=== PATIENT | female | born 1995 | race Caucasian/White ===

== ENCOUNTER 2020-03-03 18:06 | Outpatient (CLI) | payer BC, OTHER ==
[~2020-03-03 18:06] MED LIST: AMOXICILLIN500 MG PO; BENTYL 20MG TAB20 MG PO; COLACE 100MG C100 MG PO; IBUPROFEN600 MG PO; KEFLEX500 MG PO; MACROBID 100 M100 MG PO; NORCO 5-325 TA1 EACH PO; REGLAN10 MG PO; ZOFRAN ODT 4 MG4 MG SL
== END 2020-03-03 21:19 | disposition home or self-care (01) ==
LOC: GENOP 18:06
DX: O99.891 Other specified diseases and conditions complicating pregnancy (principal); R10.9 Unspecified abdominal pain; R25.2 Cramp and spasm; Z3A.37 37 weeks gestation of pregnancy
CPT/HCPCS: 59025; 81001; 96360

== ENCOUNTER 2020-03-08 14:27 | Inpatient (IN) | payer BC, OTHER ==
[~2020-03-08] VITALS: Ht 167.6 cm; Wt 101.2 kg
[2020-03-08 17:34] LABS: HEMOGLOBIN 13.2 gm/dl (12.3-15.3); RED BLOOD COUNT 4.18 M/UL (4.00-5.10); WHITE BLOOD COUNT 14.9 K/UL (4.5-11.0)
[2020-03-08] MEDS ORDERED: PRENATAL VITAM1 EAC3 PO (18:13)
[2020-03-08] MEDS ORDERED: ZOFRAN 4 MG TAB4 MG PO (18:14)
[2020-03-09 06:38] LABS: HEMOGLOBIN 10.1 gm/dl (12.3-15.3)
[2020-03-10] MEDS ORDERED: DOCUSATE SODIU100 MG PO (09:34)
[2020-03-10] MEDS ORDERED: IBUPROFEN600 MG PO (09:34)
== END 2020-03-10 13:35 | disposition home or self-care (01) | DRG 833 ==
LOC: GENOP 14:27 → OB 17:08
PROVIDERS: ADMIT Obstetrics & Gynecology
PROC: 10E0XZZ Delivery of Products of Conception, External Approach (ICD-10-PCS; principal; 2020-03-08)
PROC: 10907ZC Drainage of Amniotic Fluid, Therapeutic from Products of Conception, Via Natural or Artificial Opening (ICD-10-PCS; 2020-03-08)
PROC: 0UQMXZZ Repair Vulva, External Approach (ICD-10-PCS; 2020-03-08)
DX: O46.93 Antepartum hemorrhage, unspecified, third trimester (principal); Z3A.38 38 weeks gestation of pregnancy; Z28.21 Immunization not carried out because of patient refusal; W19.XXXA Unspecified fall, initial encounter; Y93.9 Activity, unspecified; Y92.009 Unspecified place in unspecified non-institutional (private) residence as the place of occurrence of the external cause; O70.0 First degree perineal laceration during delivery; O99.02 Anemia complicating childbirth; D64.9 Anemia, unspecified; O75.89 Other specified complications of labor and delivery; G43.909 Migraine, unspecified, not intractable, without status migrainosus; O99.52 Diseases of the respiratory system complicating childbirth; J45.909 Unspecified asthma, uncomplicated
CPT/HCPCS: 36415; 51702; 82800; 85014; 85018; 85025; 87635; J2405; J2590; J7120